=== PATIENT | male | born 1995 | race Asian ===

== ENCOUNTER 2023-02-28 08:11 | Emergency (ER) | payer MEDICARE, OTHER ==
[~2023-02-28] VITALS: Ht 175.3 cm; Wt 71.5 kg
[~2023-02-28 08:11] MED LIST: ABILIFY MAINTE300 M1 IM; ARIPIPRAZOLE20 MG PO; BUPROPION XL300 MG PO; CEPHALEXIN500 MG PO; CIPROFLOXACIN250 MG PO; CITALOPRAM HBR10 MG PO; DIVALPROEX SOD500 M1 PO; FLOMAX0.4 MG PO; INVEGA6 MG PO; LEVOTHYROXINE50 MCG PO; NAPROXEN500 MG PO; OLANZAPINE10 MG PO; TAMSULOSIN HCL0.4 MG PO
[2023-02-28 09:34] VITALS: BP 111/70
== END 2023-02-28 09:36 | disposition home or self-care (01) ==
LOC: ED 08:11
DX: Z00.8 Encounter for other general examination (principal); F17.200 Nicotine dependence, unspecified, uncomplicated
CPT/HCPCS: 99282

== ENCOUNTER 2023-03-02 11:19 | Emergency (ER) | payer MEDICARE, OTHER ==
[~2023-03-02] VITALS: Ht 175.3 cm; Wt 69.9 kg
--- OUTSIDE RECORDS SUMMARY | 2023-03-02 11:22 | XMS ---
PreManage Notification: YONNY WHITNEY Security Flight Dynamicist Events No recent Security Events currently on file CRITERIA MET - Group Notification - [facility] - 2 Visits in 30 Days CARE PROVIDERS Stevenson GAFFNEY, Family Medicine 01/16/2018-Leona Llanos PHONE: Unknown -, Azra Barrera- Dentist: Medical Instructor [facility] PHONE: [phone] PARAS TREJO Nurse Practitioner: Psychiatric/Mental Health Current PHONE: [phone] Care Guidelines exist for the following facilities: [facility] - [facility] ( 09/28/2018 ) [place] VISIT COUNT (12 MO.) 2 [facility] TOTAL [facility] NOTE: Visits indicate total known visits. ED/UCC VISIT TRACKING (12 MO.) 03/02/2023 11:20 [facility] [place] TYPE: Emergency COMPLAINT: - MEDICAL CLEARANCE 02/28/2023 08:13 [facility] [place] TYPE: Emergency COMPLAINT: - DRUG WITHDRAWAL 02/11/2023 15:05 [facility] [employer] [place] ([employer]) TYPE: Emergency DIAGNOSES: - Alcohol use, unspecified with intoxication delirium - Alcohol Intoxication 11/11/2022 19:58 [facility] [employer] [place] ([employer] TYPE: Emergency DIAGNOSES: - Paranoid schizophrenia - Suicidal ideations - Suicidal Thoughts INPATIENT VISIT TRACKING (12 MO.) No inpatient visits to display in this time frame [email or web address]
[2023-03-02 14:59] VITALS: BP 124/70
== END 2023-03-02 14:58 | disposition home or self-care (01) ==
LOC: ED 11:19
DX: F20.9 Schizophrenia, unspecified (principal); F31.9 Bipolar disorder, unspecified; F17.200 Nicotine dependence, unspecified, uncomplicated
CPT/HCPCS: 99283

== ENCOUNTER 2023-03-06 20:51 | Emergency (ER) | payer MEDICARE, OTHER ==
[~2023-03-06] VITALS: Ht 175.3 cm; Wt 68.0 kg
--- OUTSIDE RECORDS SUMMARY | 2023-03-06 20:52 | XMS ---
PreManage Notification: YONNY WHITNEY Security Scene Shifter Events No recent Security Events currently on file CRITERIA MET - Group Notification - [facility] - 2 Visits in 30 Days CARE PROVIDERS Stevenson GAFFNEY, Family Medicine 01/16/2018-Leona Llanos PHONE: Unknown -, Azra Barrera- Dentist: Brand Planner [facility] PHONE: [phone] PARAS TREJO Nurse Practitioner: Psychiatric/Mental Health Current PHONE: [phone] Care Guidelines exist for the following facilities: [facility] - [facility] ( 03/07/2017 ) [place] VISIT COUNT (12 MO.) 3 [facility]AKESH [facility]avitt [facility] TOTAL 5 NOTE: Visits indicate total known visits. ED/UCC VISIT TRACKING (12 MO.) 03/06/2023 20:51 [facility] [place] TYPE: Emergency COMPLAINT: - MEDICAL CLEARANCE 03/02/2023 11:20 [facility] [place] TYPE: Emergency COMPLAINT: - MEDICAL CLEARANCE 02/28/2023 08:13 [facility] [place] TYPE: Emergency COMPLAINT: - DRUG WITHDRAWAL DIAGNOSES: - Encounter for other administrative examinations - Encounter for other general examination - Nicotine dependence, unspecified, uncomplicated 02/11/2023 15:05 [facility] [place] ([employer]) TYPE: Emergency DIAGNOSES: - Alcohol use, unspecified with intoxication delirium - Alcohol Intoxication 11/11/2022 19:58 [facility] DIAGNOSES: - Paranoid schizophrenia - Suicidal ideations - Suicidal Thoughts INPATIENT VISIT TRACKING (12 MO.) No inpatient visits to display in this time frame [email or web address]
[2023-03-06 23:57] LABS: HEMOGLOBIN 15.9 g/dL (12.0-18.0)
[2023-03-07] LABS: BASOPHILS 0.3 % (0-2); EOSINOPHILS 0.6 % (0-6); HEMATOCRIT 48.2 % (35.0-50.0); LYMPHOCYTES 21.2 % (24-44); MCH 30.7 (27-36); MCV 92.9 fl (81-99); MONOCYTES 9.8 % (0-12); NEUTROPHILS 68.1 % (39-80); PLATELET COUNT 266 K/uL (140-440); RBC 5.18 M/ul (4.3-5.7)
[2023-03-07 00:22] LABS: ACETAMINOPHEN 0 ug/mL (10-30); ALBUMIN 4.6 g/dL (3.4-5.0); ALBUMIN/GLOBULIN RATIO 1.39 (1.1-2.4); ALCOHOL, MEDICAL <3 ng/dL (<3); ALKALINE PHOSPHATASE 91 U/L (46-116); ALT (SGPT) 42 U/L (14-59); ANION GAP 17.6 (7-21); AST (SGOT) 46 U/L (15-37); BILIRUBIN, TOTAL 1.3 ng/dL (0.2-1.0); BUN/CREATININE RATIO 12.38 (6.0-28.6); CARBON DIOXIDE 28 mmol/L (21-32); CHLORIDE 100 mmol/L (98-107); CREATININE, SERUM 1.05 mg/dL (0.70-1.30); GLOMERULAR FILTRATION RATE,EST 99 mL/min (>60); POTASSIUM 3.6 mmol/L (3.5-5.1); PROTEIN, TOTAL 7.9 g/dL (6.4-8.2); SALICYLATE 1.1 mg/dL (2.8-20.0); TSH, 3RD GENERATION 0.935 uIU/mL (0.358-3.740); UREA NITROGEN 13 mg/dL (7-18)
[2023-03-07 04:14] LABS: BILIRUBIN, URINE NEGATIVE (negative); BLOOD/HGB, URINE NEGATIVE (Negative); KETONE, URINE SMALL (Negative); LEUK ESTERASE, URINE NEGATIVE (negative); NITRITE, URINE NEGATIVE (negative)
[2023-03-07 04:15] LABS: AMPHETAMINES, UR NEGATIVE (NEGATIVE); BARBITURATES, UR NEGATIVE (NEGATIVE); BENZODIAZEPINES, UR NEGATIVE (NEGATIVE); BUPRENORPHINE,UR NEGATIVE (NEGATIVE); COCAINE, UR NEGATIVE (NEGATIVE); MARIJUANA (THC), UR POSITIVE (NEGATIVE); MDMA, UR NEGATIVE (NEGATIVE); METHADONE, UR NEGATIVE (NEGATIVE); METHAMPHETAMINE, UR NEGATIVE (NEGATIVE); OPIATES, UR NEGATIVE (NEGATIVE); OXYCODONE, UR NEGATIVE (NEGATIVE); PHENCYCLIDINE, UR NEGATIVE (NEGATIVE); TRICYCLIC ANTIDEPRESSANT, UR NEGATIVE (NEGATIVE)
[2023-03-13] MEDS ORDERED: HYDROXYZINE HCL25 MG PO (14:40)
[2023-03-13] MEDS ORDERED: SEROQUEL200 MG PO (14:40)
[2023-03-13 14:57] VITALS: BP 116/79
== END 2023-03-13 14:55 | disposition home or self-care (01) ==
LOC: ED 20:51
PROVIDERS: Internal Medicine
DX: F25.0 Schizoaffective disorder, bipolar type (principal); F17.200 Nicotine dependence, unspecified, uncomplicated; Z59.00 Homelessness unspecified; Z79.899 Other long term (current) drug therapy
CPT/HCPCS: 36415; 70450; 80053; 80307; 81003; 84443; 85025; 96372; 99284-25; A9270; A9270-GY; G0480; J1630

== ENCOUNTER 2024-02-03 15:45 | Emergency (ER) | payer MEDICARE, OTHER ==
[~2024-02-03] VITALS: Ht 175.3 cm; Wt 107.5 kg
[~2024-02-03 15:45] MED LIST changes: +HYDROXYZINE HCL25 MG PO; +SEROQUEL200 MG PO
--- OUTSIDE RECORDS SUMMARY | 2024-02-03 15:46 | XMS ---
PreManage Notification: YONNY WHITNEY Security Director Treasurer Events No recent Security Events currently on file CRITERIA MET - Group Notification CARE PROVIDERS [employer] Nurse Practitioner: Family 04/23/2023-Current PHONE: Unknown Stevenson GAFFNEY, Family Medicine 01/16/2018-Leona Llanos PHONE: Unknown -Azra- Dentist: Basket Maker [facility] PHONE: [phone] ANDERSON MCKAY [facility] Current PHONE: Unknown Care Guidelines exist for the following facilities: [facility] - [facility] ( 03/07/2017 ) [place] VISIT COUNT (12 MO.) 4 RAKESH Leavitt [address] [place] [address] Rafal Deluca [address] [place] [address] (Zainab ) TOTAL 10 NOTE: Visits indicate total known visits. ED/UCC VISIT TRACKING (12 MO.) 02/03/2024 15:45 [facility] [place] TYPE: Emergency COMPLAINT: - MEDICAL CLEARANCE 06/12/2023 14:29 [facility] [place] TYPE: Psychiatric Emergency DIAGNOSES: - Schizoaffective disorder, unspecified - Medication 06/11/2023 09:[facility] DIAGNOSES: - Schizoaffective disorder, unspecified - Resources 05/14/2023 12:58 [place] [facility] [place] TYPE: Psychiatric Emergency DIAGNOSES: - Schizoaffective disorder, unspecified - medication titration / initiation, insomnia, ASHLYN/RORY 05/11/2023 16:06 [facility] TYPE: Emergency DIAGNOSES: - Cellulitis of left lower limb - Cellulitis of right upper limb - Other impetigo - INFECTION 04/14/2023 08:58 [facility] [place] TYPE: Psychiatric Emergency DIAGNOSES: - Alcohol dependence, in remission - Type 2 diabetes mellitus without complications - Unspecified psychosis not due to a substance or known physiological condition - disorganized, unable to sleep 03/06/2023 20:51 [facility] [place] TYPE: Emergency COMPLAINT: - MEDICAL CLEARANCE DIAGNOSES: - Homelessness unspecified - Nicotine dependence, unspecified, uncomplicated - Other senior care (current) drug therapy - Schizoaffective disorder, bipolar type - Schizophrenia, unspecified - Suicidal ideations 03/02/2023 11:20 [facility] [place] TYPE: Emergency COMPLAINT: - MEDICAL CLEARANCE DIAGNOSES: - Auditory hallucinations - Bipolar disorder, unspecified - Nicotine dependence, unspecified, uncomplicated - Schizophrenia, unspecified 02/28/2023 08:13 RAK[facility] [place] TYPE: Emergency COMPLAINT: - DRUG WITHDRAWAL DIAGNOSES: - Encounter for other administrative examinations - Encounter for other general examination - Nicotine dependence, unspecified, uncomplicated 02/11/2023 15:05 [facility]) TYPE: Emergency DIAGNOSES: - Alcohol use, unspecified with intoxication delirium - Alcohol Intoxication INPATIENT VISIT TRACKING (12 MO.) 05/14/2023 12:58 [facility] TYPE: Psychiatric Services DIAGNOSES: - Schizoaffective disorder, unspecified [email or web address]
[2024-02-03] MEDS ORDERED: VRAYLAR3 MG PO (15:56)
[2024-02-03 16:21] LABS: BASOPHILS 2.7 % (0-2); EOSINOPHILS 1.1 % (0-6); HEMATOCRIT 51.9 % (35.0-50.0); HEMOGLOBIN 17.4 g/dL (12.0-18.0); MCHC 33.5 g/dl (30-36); MCV 89.5 fl (81-99); MONOCYTES 5.5 % (0-12); NEUTROPHILS 79.7 % (39-80); PLATELET COUNT 284 K/uL (140-440)
[2024-02-03 16:35] LABS: BILIRUBIN, URINE NEGATIVE (negative); BLOOD/HGB, URINE NEGATIVE (Negative); KETONE, URINE NEGATIVE (Negative); LEUK ESTERASE, URINE NEGATIVE (negative); NITRITE, URINE NEGATIVE (negative)
[2024-02-03 16:43] LABS: ACETAMINOPHEN 0 ug/mL (10-30); ALBUMIN 4.7 g/dL (3.4-5.0); ALBUMIN/GLOBULIN RATIO 1.21 (1.1-2.4); ALCOHOL, MEDICAL <3 ng/dL (<3); ALKALINE PHOSPHATASE 94 U/L (46-116); ALT (SGPT) 23 U/L (14-59); ANION GAP 13.7 (7-21); AST (SGOT) 15 U/L (15-37); BILIRUBIN, TOTAL 1.4 ng/dL (0.2-1.0); BUN/CREATININE RATIO 14.15 (6.0-28.6); CALCIUM 9.7 mg/dL (8.5-10.1); CARBON DIOXIDE 30 mmol/L (21-32); CHLORIDE 102 mmol/L (98-107); CREATININE, SERUM 1.06 mg/dL (0.70-1.30); GLOMERULAR FILTRATION RATE,EST 97 mL/min (>60); POTASSIUM 3.7 mmol/L (3.5-5.1); PROTEIN, TOTAL 8.6 g/dL (6.4-8.2); TSH, 3RD GENERATION 1.397 uIU/mL (0.358-3.740); UREA NITROGEN 15 mg/dL (7-18)
[2024-02-03 16:44] LABS: SALICYLATE <0.2 mg/dL (2.8-20.0)
[2024-02-03 17:04] LABS: AMPHETAMINES, URINE NEGATIVE (NEGATIVE); BENZODIAZEPINE, URINE NEGATIVE (NEGATIVE); BUPRENORPHINE, URINE NEGATIVE (NEGATIVE); CANNABINOID, URINE POSITIVE (NEGATIVE); COCAINE, URINE NEGATIVE (NEGATIVE); ECSTASY, URINE NEGATIVE (NEGATIVE); FENTANYL, URINE NEGATIVE (NEGATIVE); METHADONE, URINE NEGATIVE (NEGATIVE); OPIATES, URINE NEGATIVE (NEGATIVE); OXYCODONE, URINE NEGATIVE (NEGATIVE); PHENCYCLIDINE, URINE NEGATIVE (NEGATIVE)
[2024-02-03 17:16] LABS: BARBITURATES, URINE NEGATIVE (NEGATIVE)
[2024-02-03 17:35] VITALS: BP 120/78
== END 2024-02-03 17:37 | disposition home or self-care (01) ==
LOC: ED 15:45
PROVIDERS: Emergency Medicine
DX: Z00.8 Encounter for other general examination (principal); F25.9 Schizoaffective disorder, unspecified; F17.200 Nicotine dependence, unspecified, uncomplicated; Z79.899 Other long term (current) drug therapy
CPT/HCPCS: 36415; 80053; 80307; 81003; 84443; 85025; 99284; G0480

== ENCOUNTER 2024-02-13 02:56 | Emergency (ER) | payer MEDICARE, OTHER ==
[~2024-02-13] VITALS: Ht 175.3 cm; Wt 74.5 kg
[~2024-02-13 02:56] MED LIST changes: +VRAYLAR3 MG PO
[2024-02-13] MEDS ORDERED: LACTATED RINGER'S 1,000 ML IV ONE (03:00)
--- OUTSIDE RECORDS SUMMARY | 2024-02-13 03:00 | XMS ---
PreManage Notification: YONNY WHITNEY Security Survey Research Analyst Events No recent Security Events currently on file CRITERIA MET - Group Notification - [facility] - 2 Visits in 30 Days CARE PROVIDERS FOREIGN GONZALES Nurse Practitioner: Family 04/23/2023-Current PHONE: Unknown Stevenson GAFFNEY, Family Medicine 01/16/2018-Leona Llanos PHONE: Unknown -Azra- Dentist: Personal Fitness Manager [facility] PHONE: [phone] ANDERSON MCKAY [facility] Current PHONE: Unknown Care Guidelines exist for the following facilities: [facility] ( 03/07/2017 ) [place] VISIT COUNT (12 MO.) 5 RAKESH Saini [place] 1 [facility] TOTAL 10 NOTE: Visits indicate total known visits. ED/UCC VISIT TRACKING (12 MO.) 02/13/2024 02:57 [facility] [place] TYPE: Emergency COMPLAINT: - TRAUMA 02/03/2024 15:45 [facility] [place] TYPE: Emergency COMPLAINT: - MEDICAL CLEARANCE DIAGNOSES: - Encounter for other general examination - Nicotine dependence, unspecified, uncomplicated - Other exterminator helper termite (current) drug therapy - Schizoaffective disorder, unspecified 06/12/2023 14:29 [facility] [place] TYPE: Psychiatric Emergency DIAGNOSES: - Schizoaffective disorder, unspecified - Medication 06/11/2023 09:59 [facility] [place] TYPE: Psychiatric Emergency DIAGNOSES: - Schizoaffective disorder, unspecified - Resources 05/14/2023 12:58 [facility] [place] TYPE: Psychiatric Emergency DIAGNOSES: - Schizoaffective disorder, unspecified - medication titration / initiation, insomnia, AH/VH 05/11/2023 16:06 [facility] [place] TYPE: Emergency DIAGNOSES: - Cellulitis of left lower limb - Cellulitis of right upper limb - Other impetigo - INFECTION 04/14/2023 08:58 [facility] [place] TYPE: Psychiatric Emergency DIAGNOSES: - Alcohol dependence, in remission - Type 2 diabetes mellitus without complications - Unspecified psychosis not due to a substance or known physiological condition - disorganized, unable to sleep 03/06/2023 20:51 [facility] [place] TYPE: Emergency COMPLAINT: - MEDICAL CLEARANCE DIAGNOSES: - Homelessness unspecified - Nicotine dependence, unspecified, uncomplicated - Other jail (current) drug therapy - Schizoaffective disorder, bipolar type - Schizophrenia, unspecified - Suicidal ideations 03/02/2023 11:20 [facility] [place] TYPE: Emergency COMPLAINT: - MEDICAL CLEARANCE DIAGNOSES: - Auditory hallucinations - Bipolar disorder, unspecified - Nicotine dependence, unspecified, uncomplicated - Schizophrenia, unspecified 02/28/2023 08:13 [facility] [place] TYPE: Emergency COMPLAINT: - DRUG WITHDRAWAL DIAGNOSES: - Encounter for other administrative examinations - Encounter for other general examination - Nicotine dependence, unspecified, uncomplicated INPATIENT VISIT TRACKING (12 MO.) 05/14/2023 12:58 [facility] [place] TYPE: Psychiatric Services DIAGNOSES: - Schizoaffective disorder, unspecified [id number]
[2024-02-13 03:16] LABS: BASOPHILS 0.2 % (0-2); EOSINOPHILS 0.1 % (0-6); HEMATOCRIT 30.2 % (35.0-50.0); HEMOGLOBIN 10.1 g/dL (12.0-18.0); LYMPHOCYTES 6.2 % (24-44); MCH 30.7 (27-36); MCHC 33.5 g/dl (30-36); MCV 91.6 fl (81-99); NEUTROPHILS 87.5 % (39-80); PLATELET COUNT 222 K/uL (140-440); RBC 3.29 M/ul (4.3-5.7); RDW 13.5 (10.5-15.0)
[2024-02-13 03:32] LABS: ALBUMIN/GLOBULIN RATIO 1.25 (1.1-2.4); ALCOHOL, MEDICAL <3 ng/dL (<3); ALKALINE PHOSPHATASE 65 U/L (46-116); ALT (SGPT) 21 U/L (14-59); ANION GAP 16.6 (7-21); AST (SGOT) 15 U/L (15-37); BILIRUBIN, TOTAL 1.4 ng/dL (0.2-1.0); BUN/CREATININE RATIO 4.96 (6.0-28.6); CALCIUM 8.4 mg/dL (8.5-10.1); CARBON DIOXIDE 25 mmol/L (21-32); CHLORIDE 101 mmol/L (98-107); CREATINE KINASE 218 U/L (39-308); CREATININE, SERUM 1.61 mg/dL (0.70-1.30); GLOMERULAR FILTRATION RATE,EST 59 mL/min (>60); POTASSIUM 3.6 mmol/L (3.5-5.1); PROTEIN, TOTAL 5.4 g/dL (6.4-8.2); UREA NITROGEN 8 mg/dL (7-18)
[2024-02-13 03:39] LABS: AMPHETAMINES, URINE NEGATIVE (NEGATIVE); BARBITURATES, URINE NEGATIVE (NEGATIVE); BENZODIAZEPINE, URINE NEGATIVE (NEGATIVE); BUPRENORPHINE, URINE NEGATIVE (NEGATIVE); CANNABINOID, URINE POSITIVE (NEGATIVE); COCAINE, URINE NEGATIVE (NEGATIVE); ECSTASY, URINE NEGATIVE (NEGATIVE); FENTANYL, URINE NEGATIVE (NEGATIVE); METHADONE, URINE NEGATIVE (NEGATIVE); OPIATES, URINE NEGATIVE (NEGATIVE); OXYCODONE, URINE NEGATIVE (NEGATIVE); PHENCYCLIDINE, URINE NEGATIVE (NEGATIVE)
[2024-02-13] MEDS ORDERED: CEFAZOLIN SODIUM 2 GM/20 ML SYR IV ONE (03:45)
[2024-02-13 04:00] VITALS: BP 126/62
[2024-02-13 04:01] LABS: ABO O; RH POSITIVE
[2024-02-13 04:02] LABS: ANTIBODY SCREEN NEGATIVE
[2024-02-13 09:14] LABS: IS CROSSMATCH COMPATIBLE
== END 2024-02-13 04:00 | disposition short-term general hospital (02) ==
LOC: ED 02:56
PROVIDERS: Internal Medicine
DX: S31.611A Laceration without foreign body of abdominal wall, left upper quadrant with penetration into peritoneal cavity, initial encounter (principal); S21.112A Laceration without foreign body of left front wall of thorax without penetration into thoracic cavity, initial encounter; S21.111A Laceration without foreign body of right front wall of thorax without penetration into thoracic cavity, initial encounter; F17.200 Nicotine dependence, unspecified, uncomplicated; Z79.899 Other long term (current) drug therapy; X78.9XXA Intentional self-harm by unspecified sharp object, initial encounter
CPT/HCPCS: 36415; 36430; 71045; 71260; 74177; 80053; 80307; 82553; 83690; 85025; 86850; 86900; 86901; 86922; 99285-25; G0480; J7121; P9016; Q9967